=== PATIENT | male | born 1985 | race Caucasian/White ===

== ENCOUNTER 2017-10-16 10:26 | Emergency (ER) | payer OTHER ==
[2017-10-16 10:26] VITALS: BMI 23.6
[2017-10-16 10:46] VITALS: BP 131/68
--- NOTE | 2017-10-16 11:37 | C.PDOC ---
History Of Present Illness 31 y/o male presents to the ER complaining of fever, chills, cough, body aches, runny nose, and sore throat. Patient denies having abdominal pain, nausea, vomiting, diarrhea, and dysuria. Patient does not have any other complaints. Time Seen by Provider: 10/16/17 10:56 Chief Complaint (Nursing): Fever History Per: Patient History/Exam Limitations: no limitations Onset/Duration Of Symptoms: Days Current Symptoms Are (Timing): Still Present Associated Symptoms: Fever, Chills, Sore Throat, Cough. denies: Nausea, Vomiting, Diarrhea Past Medical History Reviewed: Historical Data, Nursing Documentation, Vital Signs Vital Signs: Last Vital Signs Temp 99.2 F 10/16/17 11:55 Pulse 111 H 10/16/17 11:55 Resp 17 10/16/17 11:55 BP 131/68 10/16/17 10:45 Pulse Ox 96 10/16/17 13:58 - Medical History PMH: No Chronic Diseases Denies: Chronic Kidney Disease Surgical History: No Surg Hx Family History: States: No Known Family Hx - Social History Hx Alcohol Use: No Hx Substance Use: No - Immunization History Hx Influenza Vaccination: No Review Of Systems Except As Marked, All Systems Reviewed And Found Negative. Constitutional: Positive for: Fever, Chills, Malaise ENT: Positive for: Nose Discharge, Throat Pain Respiratory: Positive for: Cough Gastrointestinal: Negative for: Nausea, Vomiting, Abdominal Pain, Diarrhea Genitourinary: Negative for: Dysuria Physical Exam - Physical Exam Appears: Non-toxic, No Acute Distress, Other (mildly uncomfortable) Skin: Normal Color, Warm Head: Atraumatic, Normacephalic Eye(s): bilateral: Normal Inspection, PERRL Ear(s): Bilateral: Normal Nose: Normal Oral Mucosa: Moist Throat: Erythema (mild pharyngeal erythema), No Exudate Neck: Supple Chest: Symmetrical Cardiovascular: Rhythm Irregular (mildly tachycardiac) Respiratory: Normal Breath Sounds, No Accessory Muscle Use, No Rales, No Rhonchi , No Wheezing Gastrointestinal/Abdominal: Normal Exam, Soft, No Tenderness Extremity: Normal ROM Neurological/Psych: Oriented x3, Normal Speech, Normal Cognition, Normal Motor, Normal Sensation ED Course And Treatment O2 Sat by Pulse Oximetry: 96 Progress Note: Patient given Tamiflu,Tessalon, and Tylenol. Patient discharged and told to follow up with PMD. Disposition Counseled Patient/Family Regarding: Studies Performed, Diagnosis, Need For Followup, Rx Given - Disposition Referrals: [facility] [Outside] Disposition: HOME/ ROUTINE Disposition Time: 11:35 Condition: STABLE Additional Instructions: FOLLOW UP WITH YOUR doctor IN 1-2 DAYS USE MEDICATIONS DIRECTED DRINK PLENTY OF FLUIDS RETURN TO EMERGENCY ROOM IF SYMPTOMS WORSEN SEGUIMIENTO CON HOLMAN MDICO EN 1-2 CARDOZA USE MEDICAMENTOS SEGN LO INDICADO BEBER MUCHO LQUIDO REGRESE AL LUIS CARLOS DE EMERGENCIA SI LOS SNTOMAS EMPEORAN Prescriptions: Naproxen 375 mg PO BID PRN #20 tablet PRN Reason: pain Oseltamivir Phosphate [Tamiflu] 75 mg PO BID #10 capsule Phenol/Glycerin [Chloraseptic [place]] 1 spray MM Q6 PRN #1 spray PRN Reason: THROAT PAIN Instructions: Influenza (ED) Forms: [id number] (Latvian), Work Excuse Print Language: ESTONIAN - POA Present On Arrival: None - Clinical Impression Clinical Impression: Influenza-like illness, Fever - Scribe Statement The provider has reviewed the documentation as recorded by the Suzette Gonsalez Provider Attestation: All medical record entries made by the Lucilleibe were at my direction and personally dictated by me. I have reviewed the chart and agree that the record accurately reflects my personal performance of the history, physical exam, medical decision making, and the department course for this patient. I have also personally directed, reviewed, and agree with the discharge instructions and disposition.
[2017-10-16 11:56] VITALS: PULSE 111; RESP 17; TEMP 99.2
[2017-10-16 13:56] VITALS: O2SAT 96
== END 2017-10-16 11:54 | disposition home or self-care (01) ==
LOC: C.ER 10:26
DX: J11.1 Influenza due to unidentified influenza virus with other respiratory manifestations (principal); R50.9 Fever, unspecified